=== PATIENT | male | born 1970 ===

== ENCOUNTER → 2016-12-24 | Outpatient (CLI) | payer BC, OTHER ==
[~2016-12-24] MED LIST: GABA-113 PO; MULT-506 PO
--- NOTE | 2016-12-24 16:27 | DIAGNOSTIC IMAGING REPORT ---
RIGHT SHOULDER 3 VIEWS HISTORY: RIGHT SHOULDER PAIN COMPARISON: None. FINDINGS: There is no fracture or dislocation. Soft tissues are unremarkable. The right clavicle is intact. Mild AC joint arthrosis. IMPRESSION: No fractures. Mild degenerative changes within the acromioclavicular joint. Electronically signed by: Keshav Sullivan M.D. 12/24/2016 4:26 PM Dictated Date/Time: 12/24/2016 4:25 PM
== END | disposition home or self-care (01) ==
LOC: C.RDSM 15:57
PROVIDERS: ATTEND Internal Medicine
DX: M25.511 Pain in right shoulder (principal)